=== PATIENT | male | born 2005 | race Caucasian/White ===

== ENCOUNTER 2024-10-19 04:44 | Inpatient (IN) | payer OTHER, SELFPAY ==
[2024-10-19] VITALS (9 sets, daily range): BP systolic 125–152; BP diastolic 66–88; PULSE 76–113; RESP 16–18; TEMP 36.8–37.3; O2SAT 96–99; BMI 25.1
--- NOTE | 2024-10-19 04:47 | ECG_ITS ---
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
--- NOTE | 2024-10-19 04:47 | W.ED.PSYCHS ---
HPI - Psych General: Stated Complaint: 96hr hold Time Seen by Provider: 10/19/24 04:46 Discharge Plan Discharge Condition: Stable Referrals: Harjinder Prescott MD [Primary Care Provider, Family Practice] Print Language: [place] Coding Level of Care Code ED Hamper Maker for Mony Scott
--- NOTE | 2024-10-19 04:57 | ED.C_ITS ---
HPI - Psych General: Chief Complaint: Psychiatric Symptoms Stated Complaint: 96hr hold Time Seen by Provider: 10/19/24 04:46 Source: patient and police Limitations: no limitations History of Present Illness: 19-year-old male who is here with police patient had been drinking overnight and then had got a gun and ran off the [place] and making threats of killing himself police had found him and brought him in. Patient states he does not really remember this but does admit that he did get a gun and made some suicidal statements. Denies any worse improving factors Associated symptoms: Reports depression and suicidal ideation Related Data Allergies Allergy/AdvReac Type Severity Reaction Status Date / Time No Known Allergies Allergy Verified 10/19/24 04:52 Review of Systems Const: Denies: fever(s), chills, body aches or change in appetite ENMT: Denies: throat pain or dental pain Card: Denies: chest pain Resp: Denies: dyspnea GI: Denies: abdominal pain, nausea, vomiting or diarrhea Musc: Denies: neck pain or back pain Skin/Breast: Denies: rash Neuro: Denies: headache(s) Psych: Reports: depression and suicidal ideation Physical Exam Const: COMMON NORMALS: no acute distress, patient oriented x3 and healthy appearing HENMT: COMMON NORMALS: normocephalic and atraumatic HEAD & SCALP: normocephalic and atraumatic Neck/C-Spine: COMMON NORMALS: full ROM and supple Chest: COMMONS NORMALS: normal inspection of the chest Resp: COMMON NORMALS: normal respiratory effort Cardio: COMMON NORMALS: regular rate, regular rhythm and No murmurs present (Cardio) RATE: regular rate RHYTHM: regular rhythm Extremity: COMMON NORMALS: normal to inspection and full ROM Neuro: COMMON NORMALS: patient oriented x3, moves all extremities and no focal motor deficits Psych: COMMON NORMALS: mental status grossly normal, Normal thought process present and cooperative MOOD & AFFECT: Yes depressed mood THOUGHT PROCESS: Normal thought process present THOUGHT CONTENT: Yes Suicidality present Skin: COMMON NORMALS: no rashes or lesions noted and no wounds GENERAL SKIN EXAM: no rashes or lesions noted Course Vital Signs: Vital signs: Vital Signs Temperature 98.9 F 10/19/24 04:46 Pulse Rate 113 H 10/19/24 04:46 Respiratory Rate 18 10/19/24 04:46 Blood Pressure 152/88 10/19/24 04:46 Pulse Oximetry 99 10/19/24 04:46 Oxygen Delivery Me thod Room Air 10/19/24 04:46 MDM - Psych Medical Decision Making Patient presents with alcohol intoxication along with suicidal ideations patient is medically cleared I spoke to psychiatrist will admit to the psych [facility]. Medical Records I reviewed the patient's medical records. Lab Data I reviewed the patient's lab results. Laboratory Results Urine Color Dark yellow (Yellow) A 10/19/24 04:57 Urine Appearance Clear (CLEAR) 10/19/24 04:57 Urine pH 5.5 (5-7) 10/19/24 04:57 Ur Specific [place] 1.035 (1.005-1.030) H 10/19/24 04:57 Urine Protein 2+ (Negative) A 10/19/24 04:57 Urine Glucose (UA) Negative (Normal) 10/19/24 04:57 Urine Ketones Trace (Negative) 10/19/24 04:57 Urine Blood Negative (Negative) 10/19/24 04:57 Urine Nitrate Negative (Negative) 10/19/24 04:57 Urine Bilirubin Negative (Negative) 10/19/24 04:57 Urine Urobilinogen 1.0 mg/dL (Negative) 10/19/24 04:57 Ur Leukocyte Esterase Negative (Negative) 10/19/24 04:57 Urine RBC 0-2 /hpf (0-2) 10/19/24 04:57 Urine WBC 0-5 /hpf (0-5) 10/19/24 04:57 Ur Squamous Epith Cells 0-5 /hpf (0-5) 10/19/24 04:57 Amorphous Sediment Not Reportable 10/19/24 04:57 Urine Bacteria None seen /hpf (NONE) 10/19/24 04:57 Hyaline Casts 4.95 /lpf 10/19/24 04:57 Urine Opiates Screen Negative ng/mL (Negative) 10/19/24 04:57 Ur Barbiturates Screen Negative ng/mL (Negative) 10/19/24 04:57 Ur Phencyclidine Scrn Negative ng/mL (Negative) 10/19/24 04:57 Ur Amphetamines Screen Negative ng/mL (Negative) 10/19/24 04:57 U Benzodiazepines Scrn Negative ng/mL (Negative) 10/19/24 04:57 Urine Cocaine Screen Negative ng/mL (Negative) 10/19/24 04:57 U Marijuana (THC) Screen Negative ng/mL (Negative) 10/19/24 04:57 No radiology studies performed this visit Discharge Plan Discharge Patient Disposition: Admitted As Inpatient Clinical Impression: Suicidal ideation Condition: Stable Coding Level of Care Code ED Mining Helper for Mony Scott
[2024-10-19 05:05] LABS: Glucose Urine UA Negative (Normal); Nitrate Urine Negative (Negative)
[2024-10-19 05:10] LABS: Add Urine Microscopic? YES
[2024-10-19 05:12] LABS: PCP Screen Urine Negative (Negative)
[2024-10-19 05:16] LABS: Specific Gravity, Urine 1.035 (1.005-1.030)
--- NOTE | 2024-10-19 05:30 | PC.NURSE ---
96 HH Pt served with 96 HH by this RN and security. Pt alert and oriented, appropriate, all questions answered.
[2024-10-19 05:45] LABS: Hematocrit 44.7 % (37-53); Hemoglobin 15.40 g/dL (11.27-16.99); Mean Corpuscular HGB Conc 34.5 g/dL (30-55); Mean Corpuscular Hemoglobin 30.3 pg (27-33); Mean Corpuscular Volume 87.8 fl (82-101); Nucleated Red Blood Cells % 0 %; Platelet Count 212 10^3/cmm (157-399); Red Blood Count 5.09 10^6/uL (3.85-5.65); White Blood Count 8.41 10^3/uL (3.29-11.43)
[2024-10-19 06:17] LABS: Alanine Aminotransferase 16 U/L (0-41); Albumin Level 4.7 g/dL (3.5-5.2); Alcohol Level 118 mg/dL (0-10); Alkaline Phosphatase 76 U/L (40-130); Anion Gap 16.7 (5-19); Aspartate Amino Transferase 20 U/L (0-40); Blood Urea Nitrogen 12 mg/dL (6-20); Calcium 8.8 mg/dL (8.5-10.5); Carbon Dioxide 23 mmol/L (22-29); Chloride 104 mmol/L (98-107); Creatinine Clr Calc Pharmacy 142.9447; Globulin 2.4 g/dL (1.3-4.6); Glucose 111 mg/dL (65-115); Osmolality Calculated 290 mOsm/kg (285-295); Potassium 3.7 mmol/L (3.5-5.1); Sodium 140 mmol/L (136-145); Thyroid Stimulating Hormone 1.67 uIU/mL (0.27-4.20); Total Protein 7.1 g/dL (6.6-8.7)
[2024-10-19 06:21] LABS: Acetaminophen < 5.0 ug/mL (10-30); Salicylate < 0.3 mg/dL (3-10)
--- NOTE | 2024-10-19 12:55 | P.NPUHP_ITS ---
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 monitor/initiate medications and make changes as indicated. He will be in the hospital for over 2 midnights. Likely length of stay 3 to 5 days. Coding Level of Care Code Acute Code for g Fwd Diagnoses Suicidal ideation R45.851 Alcohol intoxication F10.929 Alcohol withdrawal F10.939 Alcohol use disorder F10.90 Anxiety disorder, unspecified F41.9 Bereavement Z63.4 Major depressive disorder, recurrent F33.9
--- OUTSIDE RECORDS SUMMARY | 2024-10-19 18:36 | XMS_ITS | Clinical Summary ---
Author Organization [facility] [place] Address [address] 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 Gender Identity Not on file Sexual Orientation Not on file Last Filed Vital Signs Vital Sign Reading Time Taken Comments Blood Pressure 110/68 07/18/2020 11:26 AM CDT Pulse 89 07/18/2020 11:26 AM CDT Temperature 37.3 C (99.1 F) 07/18/2020 11:26 AM CDT Respiratory Rate 18 07/18/2020 11:26 AM CDT Oxygen Saturation - - Inhaled Oxygen Concentration - - Weight 68.9 kg (152 lb) 07/18/2020 11:26 AM CDT Height 180.3 cm (5' 11 ) 07/18/2020 11:26 AM CDT Body Mass Index 21.2 07/18/2020 11:26 AM CDT Plan of Treatment Health Maintenance Due Date Last Done Comments HPV VACCINES (1 - Male 3-dose series) 2018 DTAP/TDAP/TD VACCINES (1 - Tdap) 2022 HEPATITIS B VACCINES (1 of 3 - 19+ 3-dose series) 09/2021 Preventative Visit-Managed Medicaid 2022 INFLUENZA VACCINE (#1) 2024 12/13/2018 Insurance MEDICAID MEDICAID Advance Directives For more information, please contact: [phone] Documents on File Type Date Recorded Patient Information Services Tech Expl anation Advance Directive POA 10/18/2019 12:03 PM Letter giving permission for Juan M Harp to bring patient. Care Teams Boat Diesel Motor Mechanic Relationship Specialty Start Date End Date Nhung Terry DO [address] [place] [address] PCP - General Family Practice 05/17/18
--- OUTSIDE RECORDS SUMMARY | 2024-10-19 18:36 | XMS_ITS | Patient Health Record ---
Author Organization [facility] Address [address] [place] [address] Care Team Providers Care Assistant Gm Of Content & Delivery Name Role Phone Jaun Win Primary Care Provider Allergies No Known Allergies Reason For Referral No Information Social History Sex Assigned At : Social History Observation Description Sex Assigned At Female Plan Of Treatment No Information Insurance Providers Payer Name Payer Address Payer Phone Subscriber Number Group Number Insured Name Patient Relationship to Insured Coverage Start Date Coverage End Date [facility] [address] [place] [address] [id number] Hardy Wheeler Self - patient is the insured [employer] [address] [address] [place] [address] [id number] Hardy Wheeler Self - patient is the insured
[2024-10-20 00:15] VITALS: BP 117/61; PULSE 70; RESP 16; TEMP 36.7; O2SAT 96
[2024-10-20 04:00] VITALS: BP 123/66; PULSE 82; RESP 16; TEMP 36.7; O2SAT 96
[2024-10-20 08:00] VITALS: BP 148/75; PULSE 67; RESP 18; TEMP 37; O2SAT 97
[2024-10-20] MEDS: multivitamin therapeutic Tablet 1 TAB PO (08:31)
[2024-10-20 12:00] VITALS: BP 125/77; PULSE 65; RESP 16; TEMP 37.1; O2SAT 98
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
[2024-10-20 20:00] VITALS: BP 138/79; PULSE 82; RESP 18; TEMP 36.8; O2SAT 97
[2024-10-21] VITALS: BP 103/48; PULSE 73; RESP 16; TEMP 36.6; O2SAT 97
[2024-10-21 04:00] VITALS: BP 124/49; PULSE 61; RESP 16; TEMP 36.4; O2SAT 96
[2024-10-21 07:20] VITALS: BP 132/68; PULSE 58; RESP 18; TEMP 37.1; O2SAT 95
--- NOTE | 2024-10-21 09:08 | NUR.SHIFT ---
Pt states that he slept awful last night. He denies anxiety and depression. No reports of SI/HI or hallucinations. He denies pain. He has cont to not score on CIWA, denies having any withdrawl symptoms this visit. He is calm and cooperative on assessment.
[2024-10-21 12:00] VITALS: BP 144/71; PULSE 90; RESP 18; TEMP 37.1; O2SAT 95
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
[2024-10-21 16:00] VITALS: BP 112/76; PULSE 72; RESP 16; TEMP 36.5; O2SAT 99
[2024-10-21 19:37] VITALS: BP 115/57; PULSE 88; RESP 16; TEMP 37.2; O2SAT 96
[2024-10-22 06:00] VITALS: BP 136/71; PULSE 74; RESP 16; TEMP 36.9; O2SAT 98
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
--- NOTE | 2024-10-22 09:28 | NUR.SHIFT ---
Pt states that he slept shitty Pt denies anxiety and depression. No reports of SI/HI or hallucinations. Pt states that he kept having bad dreams last night and he doesn't normally have those. He is calm and cooperative on assessment.
--- NOTE | 2024-10-22 13:56 | PC.NURSE ---
Dr. Cancino wanted this nurse to call and speak with pt significant other to see how events had unfolded that evening, how they felt the pt was doing now and if there was a plan in place for the firearm that was in the home. Radha states that the night everything happened, her and the pt were arguing and he had been drinking heavily. She states he got upset, took his gun and went outside into the [place]. She states that as he was leaving he was making suicidal. She states that he has done this one other time after having too much to drink. She states that she trusts he won't actually do anything. She felt he sounded and looked like he was doing much better. I asked her about he gun in the home. She stated that it was in a heavy safe and her Dad had the duke to it. I asked her if it was possible that the gun be completely removed from the home and she stated that she would have her Dad come and get it. She asked about d/c and I told her that Dr. Cancino didn't have a specific day in place. She wanted to pass on that he does have an appointment in [place] Thursday @2pm with a neurologist due to some numbness and tingling in extremities he has been having. I have passed this information on to Dr. Cancino.
[2024-10-22 14:00] VITALS: BP 125/69; PULSE 66; RESP 17; TEMP 36.5; O2SAT 98
[2024-10-22 20:07] VITALS: BP 124/73; PULSE 64; RESP 16; TEMP 36.9; O2SAT 95
[2024-10-23 06:00] VITALS: BP 120/61; PULSE 58; RESP 16; O2SAT 97
[2024-10-23] MEDS: multivitamin therapeutic Tablet 1 TAB PO (08:41)
[2024-10-23 14:00] VITALS: BP 117/55; PULSE 77; RESP 15; TEMP 36.9; O2SAT 95
--- NOTE | 2024-10-23 15:16 | P.NPUDS_ITS ---
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 Bacteria None seen /hpf (N ONE) 10/19/24 04:57 Hyaline Casts 4.95 /lpf 10/19/24 04:57 Salicylates < 0.3 mg/dL (3-10 ) L 10/19/24 05:35 Urine Opiates Scre en Negative ng/mL (N egative) 10/19/24 04:57 Acetaminophen < 5.0 ug/mL (10-3 0) L 10/19/24 05:35 Ur Barbiturates Sc reen Negative ng/mL (N egative) 10/19/24 04:57 Ur Phencyclidine S crn Negative ng/mL (N egative) 10/19/24 04:57 Ur Amphetamines Sc reen Negative ng/mL (N egative) 10/19/24 04:57 U Benzodiazepines Scrn Negative ng/mL (N egative) 10/19/24 04:57 Urine Cocaine Scre en Negative ng/mL (N egative) 10/19/24 04:57 U Marijuana (THC) Screen Negative ng/mL (N egative) 10/19/24 04:57 Ethyl Alcohol 118 mg/dL (0-10) H 10/19/24 05:35 Vitals: Last Vital Signs Temp 98.4 F 10/23/24 14:00 Pulse 77 10/23/24 14:00 Resp 15 10/23/24 14:00 BP 117/55 10/23/24 14:00 Pulse Ox 95 10/23/24 14:00 O2 Del Method Room Air 10/23/24 06:00 Discharge Plan Discharge Patient Disposition: Home Condition: Stable Prescriptions: Continued No Known Home Medications Discharge Order = DC NOW: Discharge Order (Routine); Ordered 10/23/24 Ordered By: Enzo Cancino Referrals: [facility] [Other] Referral Note: Inpatient and outpatient services. Call for phone interview. [facility]...[facility] [Other] - 10/24/24 6:00 pm Referral Note: [email or web address] meets weekly from 6 to 8 p.m. on Mondays at [facility] [address] in [place]. [facility] [Outside, Behavioral Health] Referral Note: Walk in Thursday through Thursday 7:30 am to 3:30 pm. Harjinder Prescott MD [Referring, [facility]] Discharge Diet: Regular Discharge Activity: Resume usual activity Patient Instructions: Opioid Safety, Patient Portal & Angelica Instructions Discharge Attestations NPU Time Spent in Discharge Care*: greater than 30 min Specific Discharge Activities: Specific discharge activities: educating patient, discussing with case fitter/social workers/dc planners, documenting/other paperwork and evaluating patient/reviewing data Coding Level of Care Code Acute Code for Chg Fwd Diagnoses Suicidal ideation R45.851 Alcohol intoxication F10.929 Alcohol withdrawal F10.939 Alcohol use disorder F10.90 Anxiety disorder, unspecified F41.9 Bereavement Z63.4 Major depressive disorder, recurrent F33.9
[2024-10-23 15:29] VITALS: BP 117/55; PULSE 75; RESP 15; TEMP 36.9; O2SAT 95
--- NOTE | 2024-10-23 15:49 | PC.NURSE ---
Reviewed discharge instructions with patient. Patient had no questions for this RN. Provided resources to [facility]. Patient ambulated to private vehicle with [facility].
== END 2024-10-23 15:51 | disposition home or self-care (01) | DRG 885 ==
LOC: ER 05:30 → NP 05:42
PROVIDERS: Emergency Medicine; Admitting Provider Psychiatry & Neurology Psychiatry; Emergency Provider Emergency Medicine; Visit Provider Psychiatry & Neurology Psychiatry
DX: F33.9 Major depressive disorder, recurrent, unspecified (principal); R45.851 Suicidal ideations; F10.239 Alcohol dependence with withdrawal, unspecified; Y90.5 Blood alcohol level of 100-119 mg/100 ml; F41.9 Anxiety disorder, unspecified; Z63.4 Disappearance and death of family member; Z62.812 Personal history of neglect in childhood; Z62.811 Personal history of psychological abuse in childhood; Z91.51 Personal history of suicidal behavior; Z81.3 Family history of other psychoactive substance abuse and dependence; Z72.0 Tobacco use; Z80.9 Family history of malignant neoplasm, unspecified; Z83.6 Family history of other diseases of the respiratory system; Z83.3 Family history of diabetes mellitus; Z82.49 Family history of ischemic heart disease and other diseases of the circulatory system; Z82.0 Family history of epilepsy and other diseases of the nervous system; Z81.8 Family history of other mental and behavioral disorders; Z81.1 Family history of alcohol abuse and dependence; F10.229 Alcohol dependence with intoxication, unspecified
CPT/HCPCS: 80053; 80306; 80307; 81001; 84443; 85025; 93005; 97165; 99285; J9999